=== PATIENT | female | born 1945 | race Caucasian/White ===

== ENCOUNTER 2024-02-15 21:55 | Emergency (ER) | payer MEDICARE, OTHER, MEDICAID ==
[2024-02-15 22:00] VITALS: BP 158/70
[2024-02-15 22:31] LABS: HEMATOCRIT 32.6 % (37.0-47.0); HEMOGLOBIN 10.5 g/dL (12.5-16.0); MEAN CELL VOLUME 88 fl (78-100); MEAN CORPUSCULAR HEMOGLOBIN 28 pg (27-31); MEAN CORPUSCULAR HGB CONC 32 g/dL (33-37); MEAN PLATELET VOLUME 8.4 fl (7.4-10.4); PLATELET COUNT 486 K/mm3 (130-400); RED BLOOD COUNT 3.71 M/mm3 (4.10-5.30); RED CELL DISTRIBUTION WIDTH 13.3 % (11.5-14.5); WHITE BLOOD COUNT 14.4 K/mm3 (4.8-10.8)
[2024-02-15 22:36] LABS: ALBUMIN 3.5 g/dL (3.4-4.8)
[2024-02-15 22:37] LABS: CALCIUM 9.8 mg/dL (8.3-10.5)
[2024-02-15 22:38] LABS: TOTAL PROTEIN 6.9 g/dL (6.2-8.1)
[2024-02-15 22:40] LABS: TOTAL BILIRUBIN 0.4 mg/dL (0.2-1.2)
[2024-02-15 23:10] LABS: LYMPHOCYTE 4 % (20-51); MONOCYTE 7 % (3-10); NEUTROPHILS 87 % (42-75)
[2024-02-15 23:15] LABS: URINE COLOR YELLOW (YELLOW)
[2024-02-15 23:16] LABS: PH-URINE 6.5 (5.0 - 8.0); URINE APPEARANCE CLOUDY (CLEAR); URINE BILIRUBIN NEGATIVE (NEGATIVE); URINE BLOOD 2+ (NEGATIVE); URINE GLUCOSE NEGATIVE (NEGATIVE); URINE KETONE NEGATIVE (NEGATIVE); URINE LEUKOCYTE ESTERASE 3+ (NEGATIVE); URINE NITRATE NEGATIVE (NEGATIVE); URINE PROTEIN(semi-quant) 3+ (NEGATIVE); URINE WBC >50 /hpf (0-3)
[2024-02-15] MEDS ORDERED: Iohexol 300 - 100 ML VIAL IV ONE (23:21)
[2024-02-15] MEDS ORDERED: cefTRIAXone 1 G in Water For Injection,Sterile 10 ML IV ONE (23:30)
[2024-02-15] MEDS ORDERED: CEPHALEXIN500 M1 PO (23:33)
[2024-02-16] MEDS ORDERED: LANTUS SOLOS100 U/ML SQ (02:37)
[2024-02-16] MEDS ORDERED: CITALOPRAM HBR10 MG PO (02:37)
[2024-02-16] MEDS ORDERED: BETAMETHASONE D1 CR2 TP (02:38)
[2024-02-16] MEDS ORDERED: FAMOTIDINE20 MG PO (02:40)
[2024-02-16] MEDS ORDERED: RYBELSUS7 MG PO (02:41)
[2024-02-16] MEDS ORDERED: ROSUVASTATIN CAL5 MG PO (02:41)
[2024-02-16] MEDS ORDERED: COLACE100 M1 PO (02:42)
[2024-02-16] MEDS ORDERED: VITAMIN B122500 MC1 PO (02:43)
[2024-02-16] MEDS ORDERED: VITAMIN E 180 MG PO (02:44)
[2024-02-16] MEDS ORDERED: VITAMIN D350 MC1 PO (02:44)
== END 2024-02-16 01:40 | disposition other institution (70) ==
LOC: ED 21:55
PROVIDERS: Family Medicine
DX: N12 Tubulo-interstitial nephritis, not specified as acute or chronic (principal); N39.0 Urinary tract infection, site not specified; E86.0 Dehydration
CPT/HCPCS: J0696; J7120; Q9967

== ENCOUNTER 2024-02-16 00:30 | Inpatient (IN) | payer MEDICARE, OTHER, MEDICAID ==
[~2024-02-16] VITALS: Ht 160 cm; Wt 79.9 kg
[2024-02-16] VITALS (7 sets, daily range): BP systolic 102–133; BP diastolic 67–80
[~2024-02-16 00:30] MED LIST: CEPHALEXIN500 M1 PO
[2024-02-16] MEDS ORDERED: Insulin Glargine-ygfn (Lantus) SQ SCH (00:44)
[2024-02-16] MEDS ORDERED: Polyethylene Glycol 3350 Powder 17 GM PACKET PO PRN (00:45)
[2024-02-16] MEDS ORDERED: Cefepime 1 G in Water For Injection,Sterile 10 ML IV SCH (00:45)
[2024-02-16] MEDS ORDERED: NS 1,000 ML IV SCH (00:45)
[2024-02-16] MEDS ORDERED: Acetaminophen 500 MG TAB PO PRN (00:45)
[2024-02-16] MEDS ORDERED: Dextrose (Glucose) 15 GM (4 x 3.75 GM) Chewable TAB PACK PO PRN (01:00)
[2024-02-16] MEDS ORDERED: Dextrose 50% Water 25 GM/50 ML SYRINGE IV PRN (01:00)
[2024-02-16] MEDS ORDERED: Glucagon 1 MG VIAL IM PRN (01:00)
[2024-02-16] MEDS ORDERED: LANTUS SOLOS100 U/ML SQ (02:37)
[2024-02-16] MEDS ORDERED: CITALOPRAM HBR10 MG PO (02:37)
[2024-02-16] MEDS ORDERED: BETAMETHASONE D1 CR2 TP (02:38)
[2024-02-16] MEDS ORDERED: FAMOTIDINE20 MG PO (02:40)
[2024-02-16] MEDS ORDERED: ROSUVASTATIN CAL5 MG PO (02:41)
[2024-02-16] MEDS ORDERED: RYBELSUS7 MG PO (02:41)
[2024-02-16] MEDS ORDERED: COLACE100 M1 PO (02:42)
[2024-02-16] MEDS ORDERED: VITAMIN B122500 MC1 PO (02:43)
[2024-02-16] MEDS ORDERED: VITAMIN D350 MC1 PO (02:44)
[2024-02-16] MEDS ORDERED: VITAMIN E 180 MG PO (02:44)
[2024-02-16] MEDS ORDERED: Insulin Lispro (HumaLOG) SQ SCH (08:00)
[2024-02-16] MEDS ORDERED: Citalopram 20 MG TAB PO SCH (09:00)
[2024-02-16] MEDS ORDERED: Famotidine 20 MG TAB PO SCH (09:00)
[2024-02-16] MEDS ORDERED: Cyanocobalamin (Vit B-12) 1,000 MCG TAB PO SCH (09:00)
[2024-02-16] MEDS ORDERED: Cholecalciferol (Vit D3) 25 MCG (1,000 Units) TAB PO SCH (09:00)
[2024-02-16 09:16] LABS: BASO # 0.02 K/mm3 (0.02-0.10); EOS # 0.35 K/mm3 (0.04-0.40); EOS % 2.6 % (1.0-5.0); HEMATOCRIT 33.7 % (37.0-47.0); HEMOGLOBIN 10.6 g/dL (12.5-16.0); LYMPH# 0.73 K/mm3 (1.50-4.00); MEAN CELL VOLUME 91 fl (78-100); MEAN CORPUSCULAR HEMOGLOBIN 29 pg (27-31); MEAN CORPUSCULAR HGB CONC 32 g/dL (33-37); MEAN PLATELET VOLUME 8.5 fl (7.4-10.4); MONO # 1.12 K/mm3 (0.20-0.80); NEU # 11.06 K/mm3 (1.40-6.50); PLATELET COUNT 455 K/mm3 (130-400); RED BLOOD COUNT 3.69 M/mm3 (4.10-5.30); RED CELL DISTRIBUTION WIDTH 13.5 % (11.5-14.5); WHITE BLOOD COUNT 13.3 K/mm3 (4.8-10.8)
[2024-02-16 09:25] LABS: ALBUMIN 3.3 g/dL (3.4-4.8); CALCIUM 9.4 mg/dL (8.3-10.5)
[2024-02-16 09:28] LABS: TOTAL PROTEIN 6.5 g/dL (6.2-8.1)
[2024-02-16 09:30] LABS: TOTAL BILIRUBIN 0.3 mg/dL (0.2-1.2)
[2024-02-17 03:18] VITALS: BP 114/65
[2024-02-17 07:17] VITALS: BP 115/72
[2024-02-17 07:55] LABS: HEMATOCRIT 29.7 % (37.0-47.0); HEMOGLOBIN 9.5 g/dL (12.5-16.0); MEAN CELL VOLUME 91 fl (78-100); MEAN CORPUSCULAR HEMOGLOBIN 29 pg (27-31); MEAN CORPUSCULAR HGB CONC 32 g/dL (33-37); MEAN PLATELET VOLUME 8.5 fl (7.4-10.4); PLATELET COUNT 418 K/mm3 (130-400); RED BLOOD COUNT 3.27 M/mm3 (4.10-5.30); RED CELL DISTRIBUTION WIDTH 13.6 % (11.5-14.5); WHITE BLOOD COUNT 9.8 K/mm3 (4.8-10.8)
[2024-02-17 08:05] LABS: CALCIUM 8.9 mg/dL (8.3-10.5)
[2024-02-17 08:06] LABS: TOTAL PROTEIN 5.9 g/dL (6.2-8.1)
[2024-02-17 08:08] LABS: TOTAL BILIRUBIN 0.2 mg/dL (0.2-1.2)
[2024-02-17 08:17] LABS: BAND 5 % (0-10); LYMPHOCYTE 5 % (20-51); MONOCYTE 10 % (3-10); NEUTROPHILS 73 % (42-75)
[2024-02-17 10:54] VITALS: BP 105/68
[2024-02-17 14:46] VITALS: BP 122/50
[2024-02-17 19:10] VITALS: BP 150/75
[2024-02-17 23:43] VITALS: BP 108/64
[2024-02-18 03:45] VITALS: BP 110/65
[2024-02-18 06:17] LABS: BASO # 0.01 K/mm3 (0.02-0.10); EOS # 0.52 K/mm3 (0.04-0.40); EOS % 6.1 % (1.0-5.0); HEMATOCRIT 30.3 % (37.0-47.0); HEMOGLOBIN 9.3 g/dL (12.5-16.0); LYMPH# 0.77 K/mm3 (1.50-4.00); MEAN CELL VOLUME 92 fl (78-100); MEAN CORPUSCULAR HEMOGLOBIN 28 pg (27-31); MEAN CORPUSCULAR HGB CONC 31 g/dL (33-37); MEAN PLATELET VOLUME 8.6 fl (7.4-10.4); PLATELET COUNT 419 K/mm3 (130-400); RED BLOOD COUNT 3.29 M/mm3 (4.10-5.30); RED CELL DISTRIBUTION WIDTH 13.6 % (11.5-14.5); WHITE BLOOD COUNT 8.5 K/mm3 (4.8-10.8)
[2024-02-18] MEDS ORDERED: Amoxicillin/Clavulanate K+ 875/125 MG TAB PO SCH (08:08)
[2024-02-18 12:49] VITALS: BP 122/77
[2024-02-18] MEDS ORDERED: AMOXICILLIN AND1 TA2 PO (12:53)
[2024-02-18 18:00] VITALS: BP 122/78
[2024-02-19 00:17] VITALS: BP 150/70
[2024-02-19 05:38] LABS: BASO # 0.03 K/mm3 (0.02-0.10); EOS # 0.41 K/mm3 (0.04-0.40); EOS % 4.2 % (1.0-5.0); HEMATOCRIT 30.3 % (37.0-47.0); HEMOGLOBIN 9.7 g/dL (12.5-16.0); LYMPH# 0.75 K/mm3 (1.50-4.00); MEAN CELL VOLUME 90 fl (78-100); MEAN CORPUSCULAR HEMOGLOBIN 29 pg (27-31); MEAN CORPUSCULAR HGB CONC 32 g/dL (33-37); MEAN PLATELET VOLUME 8.4 fl (7.4-10.4); MONO # 0.93 K/mm3 (0.20-0.80); NEU # 7.62 K/mm3 (1.40-6.50); PLATELET COUNT 427 K/mm3 (130-400); RED BLOOD COUNT 3.35 M/mm3 (4.10-5.30); RED CELL DISTRIBUTION WIDTH 13.6 % (11.5-14.5); WHITE BLOOD COUNT 9.8 K/mm3 (4.8-10.8)
[2024-02-19 05:52] LABS: CALCIUM 8.9 mg/dL (8.3-10.5)
[2024-02-19 06:18] VITALS: BP 153/75
== END 2024-02-19 09:15 | disposition home or self-care (01) | DRG 690 ==
LOC: MED/SURG 00:30
PROVIDERS: ADMIT Family Medicine
DX: N12 Tubulo-interstitial nephritis, not specified as acute or chronic (principal); E11.9 Type 2 diabetes mellitus without complications; K21.9 Gastro-esophageal reflux disease without esophagitis; D51.9 Vitamin B12 deficiency anemia, unspecified; D64.9 Anemia, unspecified; E55.9 Vitamin D deficiency, unspecified; F32.A Depression, unspecified; F41.9 Anxiety disorder, unspecified; Z66 Do not resuscitate; R32 Unspecified urinary incontinence; E78.5 Hyperlipidemia, unspecified; E86.0 Dehydration; Z79.4 Long term (current) use of insulin; Z96.0 Presence of urogenital implants; Z85.51 Personal history of malignant neoplasm of bladder
CPT/HCPCS: J0692; J1650; J1815; J7030

== ENCOUNTER 2024-03-04 21:17 | Emergency (ER) | payer MEDICARE, OTHER, MEDICAID ==
[~2024-03-04] VITALS: Ht 4 cm; Wt 79.9 kg
[~2024-03-04 21:17] MED LIST changes: +AMOXICILLIN AND1 TA2 PO; +BETAMETHASONE D1 CR2 TP; +CITALOPRAM HBR10 MG PO; +COLACE100 M1 PO; +FAMOTIDINE20 MG PO; +LANTUS SOLOS100 U/ML SQ; +ROSUVASTATIN CAL5 MG PO; +RYBELSUS7 MG PO; +VITAMIN B122500 MC1 PO; +VITAMIN D350 MC1 PO; +VITAMIN E 180 MG PO
[2024-03-04] MEDS ORDERED: GABAPENTIN100 MG PO (21:43)
[2024-03-04] MEDS ORDERED: TYLENOL EXTRA500 M2 PO (21:49)
[2024-03-04] MEDS ORDERED: ZOFRAN ODT4 MG PO (21:50)
[2024-03-04] MEDS ORDERED: CALCIUM CITRAT200 M2 PO (21:52)
[2024-03-04] MEDS ORDERED: CRANBERRY400 M3 PO (21:53)
[2024-03-04 21:59] LABS: BASO # 0.01 K/mm3 (0.02-0.10); EOS # 0.19 K/mm3 (0.04-0.40); EOS % 1.5 % (1.0-5.0); HEMATOCRIT 32.9 % (37.0-47.0); HEMOGLOBIN 10.4 g/dL (12.5-16.0); MEAN CELL VOLUME 88 fl (78-100); MEAN CORPUSCULAR HEMOGLOBIN 28 pg (27-31); MEAN CORPUSCULAR HGB CONC 32 g/dL (33-37); MEAN PLATELET VOLUME 8.3 fl (7.4-10.4); MONO # 1.33 K/mm3 (0.20-0.80); PLATELET COUNT 445 K/mm3 (130-400); RED BLOOD COUNT 3.75 M/mm3 (4.10-5.30); RED CELL DISTRIBUTION WIDTH 13.7 % (11.5-14.5); WHITE BLOOD COUNT 12.9 K/mm3 (4.8-10.8)
[2024-03-04 22:03] LABS: ALBUMIN 3.6 g/dL (3.4-4.8)
[2024-03-04 22:04] LABS: CALCIUM 10.2 mg/dL (8.3-10.5)
[2024-03-04 22:05] LABS: TOTAL PROTEIN 6.7 g/dL (6.2-8.1)
[2024-03-04 22:07] LABS: TOTAL BILIRUBIN 0.3 mg/dL (0.2-1.2)
[2024-03-04 22:36] LABS: URINE APPEARANCE CLOUDY (CLEAR); URINE COLOR YELLOW (YELLOW)
[2024-03-04 22:37] LABS: URINE BILIRUBIN NEGATIVE (NEGATIVE); URINE BLOOD 2+ (NEGATIVE); URINE GLUCOSE NEGATIVE (NEGATIVE); URINE KETONE NEGATIVE (NEGATIVE); URINE LEUKOCYTE ESTERASE 3+ (NEGATIVE); URINE NITRATE NEGATIVE (NEGATIVE); URINE PROTEIN(semi-quant) 2+ (NEGATIVE); URINE WBC >50 /hpf (0-3)
[2024-03-04] MEDS ORDERED: CEFDINIR300 MG PO (22:44)
[2024-03-04] MEDS ORDERED: Acetaminophen 325 MG TAB PO ONE (23:11)
[2024-03-04 23:57] VITALS: BP 129/71
== END 2024-03-04 23:57 | disposition home or self-care (01) ==
LOC: ED 21:17
PROVIDERS: Physician Assistant
DX: N39.0 Urinary tract infection, site not specified (principal); Z85.42 Personal history of malignant neoplasm of other parts of uterus
CPT/HCPCS: J0696

== ENCOUNTER 2024-03-13 17:20 | Observation (INO) | payer MEDICARE, OTHER, MEDICAID ==
[~2024-03-13] VITALS: Ht 162.6 cm; Wt 77.6 kg
[~2024-03-13 17:20] MED LIST changes: +CALCIUM CITRAT200 M2 PO; +CEFDINIR300 MG PO; +CRANBERRY400 M3 PO; +GABAPENTIN100 MG PO; +TYLENOL EXTRA500 M2 PO; +ZOFRAN ODT4 MG PO
[2024-03-13] MEDS ORDERED: NS 500 ML IV SCH (17:45)
[2024-03-13] MEDS ORDERED: Ondansetron 4 MG/2 ML VIAL IV ONE (17:45)
[2024-03-13 18:03] LABS: HEMATOCRIT 35.9 % (37.0-47.0); HEMOGLOBIN 11.1 g/dL (12.5-16.0); MEAN CELL VOLUME 92 fl (78-100); MEAN CORPUSCULAR HEMOGLOBIN 29 pg (27-31); MEAN CORPUSCULAR HGB CONC 31 g/dL (33-37); MEAN PLATELET VOLUME 8.7 fl (7.4-10.4); PLATELET COUNT 443 K/mm3 (130-400); RED CELL DISTRIBUTION WIDTH 13.8 % (11.5-14.5); WHITE BLOOD COUNT 19.1 K/mm3 (4.8-10.8)
[2024-03-13 18:11] LABS: ALBUMIN 3.9 g/dL (3.4-4.8); SODIUM 140 mmol/L (136-145)
[2024-03-13 18:12] LABS: CALCIUM 10.5 mg/dL (8.3-10.5)
[2024-03-13 18:13] LABS: GLUCOSE 229 mg/dL (65-105)
[2024-03-13 18:14] LABS: CARBON DIOXIDE 23 mmol/L (23-31)
[2024-03-13 18:15] LABS: TOTAL BILIRUBIN 0.4 mg/dL (0.2-1.2)
[2024-03-13 18:18] LABS: AST-SGOT 23 U/L (5-34)
[2024-03-13 18:20] LABS: ALT/SGPT 21 U/L (0-55); LIPASE 6 U/L (8-78)
[2024-03-13 18:29] LABS: BAND 3 % (0-10); LYMPHOCYTE 4 % (20-51); MONOCYTE 5 % (3-10); NEUTROPHILS 86 % (42-75)
[2024-03-13 18:30] LABS: TROPONIN-I < 0.030 ng/mL (0.00-0.033)
[2024-03-13] MEDS ORDERED: Iodixanol-320 100 ML BOTTLE IV ONE (19:34)
[2024-03-13] MEDS ORDERED: cefTRIAXone 1 G in Water For Injection,Sterile 10 ML IV ONE (19:45)
[2024-03-13] MEDS ORDERED: NS 1,000 ML IV SCH (19:45)
[2024-03-13 20:00] LABS: URINE APPEARANCE CLOUDY (CLEAR); URINE BILIRUBIN NEGATIVE (NEGATIVE); URINE BLOOD 2+ (NEGATIVE); URINE COLOR YELLOW (YELLOW); URINE GLUCOSE NEGATIVE (NEGATIVE); URINE KETONE NEGATIVE (NEGATIVE); URINE NITRATE NEGATIVE (NEGATIVE); URINE PROTEIN(semi-quant) 2+ (NEGATIVE)
[2024-03-13 20:01] LABS: URINE LEUKOCYTE ESTERASE 3+ (NEGATIVE); URINE WBC >50 /hpf (0-3)
[2024-03-13 22:52] VITALS: BP 136/68
[2024-03-13] MEDS ORDERED: Cefepime 1 G in Water For Injection,Sterile 10 ML IV SCH (23:30)
[2024-03-13] MEDS ORDERED: Naloxone 0.4 MG/ML VIAL IV PRN (23:30)
[2024-03-13] MEDS ORDERED: Acetaminophen 325 MG TAB PO PRN (23:30)
[2024-03-14 03:02] VITALS: BP 132/70
[2024-03-14 07:06] LABS: BASO # 0.03 K/mm3 (0.02-0.10); EOS # 0.11 K/mm3 (0.04-0.40); EOS % 0.8 % (1.0-5.0); HEMATOCRIT 27.6 % (37.0-47.0); LYMPH# 0.77 K/mm3 (1.50-4.00); MEAN CELL VOLUME 89 fl (78-100); MEAN CORPUSCULAR HEMOGLOBIN 28 pg (27-31); MEAN CORPUSCULAR HGB CONC 32 g/dL (33-37); MEAN PLATELET VOLUME 8.4 fl (7.4-10.4); MONO # 1.47 K/mm3 (0.20-0.80); NEU # 11.35 K/mm3 (1.40-6.50); PLATELET COUNT 391 K/mm3 (130-400); RED CELL DISTRIBUTION WIDTH 14.1 % (11.5-14.5); WHITE BLOOD COUNT 13.8 K/mm3 (4.8-10.8)
[2024-03-14 07:12] LABS: HEMOGLOBIN 8.7 g/dL (12.5-16.0)
[2024-03-14 07:19] LABS: TOTAL PROTEIN 5.8 g/dL (6.2-8.1)
[2024-03-14 07:21] LABS: TOTAL BILIRUBIN 0.3 mg/dL (0.2-1.2)
[2024-03-14 07:35] VITALS: BP 115/67
--- NOTE | 2024-03-14 08:45 | NUR ---
PT. DENIES ANY NEEDS OR CONCERNS. STATES THAT SHE IS TIRED TODAY AND STILL HAS SOME BURNING WITH URINATION. STEADY GAIT.
[2024-03-14] MEDS ORDERED: Citalopram 20 MG TAB PO SCH (09:00)
[2024-03-14] MEDS ORDERED: Docusate Sodium 100 MG CAP PO SCH (09:00)
[2024-03-14 11:11] VITALS: BP 117/69
== END 2024-03-14 12:08 | disposition other institution (70) ==
LOC: ED 17:20 → MED/SURG 21:48
PROVIDERS: ADMIT Nurse Practitioner Family
DX: N12 Tubulo-interstitial nephritis, not specified as acute or chronic (principal); N39.0 Urinary tract infection, site not specified; B96.89 Other specified bacterial agents as the cause of diseases classified elsewhere; E87.20 Acidosis, unspecified; R53.83 Other fatigue; E11.9 Type 2 diabetes mellitus without complications; Z79.84 Long term (current) use of oral hypoglycemic drugs; Z79.4 Long term (current) use of insulin; Z85.51 Personal history of malignant neoplasm of bladder; Z85.42 Personal history of malignant neoplasm of other parts of uterus
CPT/HCPCS: G0378; J0692; J0696; J1650; J2405; J7030; J7040; Q9967

== ENCOUNTER 2024-03-14 12:09 | Inpatient (IN) | payer MEDICARE, OTHER, MEDICAID ==
[~2024-03-14] VITALS: Ht 162.6 cm; Wt 77.6 kg
[2024-03-14] MEDS ORDERED: Polyethylene Glycol 3350 Powder 17 GM PACKET PO PRN (13:00)
[2024-03-14] MEDS ORDERED: Acetaminophen 325 MG TAB PO PRN (13:00)
[2024-03-14] MEDS ORDERED: Ondansetron 4 MG/2 ML VIAL IV PRN (13:00)
[2024-03-14] MEDS ORDERED: Docusate Sodium 100 MG CAP PO PRN (13:15)
[2024-03-14] MEDS ORDERED: Docusate Sodium 100 MG CAP PO SCH (13:15)
[2024-03-14] MEDS ORDERED: Cefepime 1 G in Water For Injection,Sterile 10 ML IV SCH ×2 (13:15→17:30)
[2024-03-14] MEDS ORDERED: Famotidine 20 MG TAB PO PRN (13:15)
[2024-03-14] MEDS ORDERED: Dextrose 50% Water 25 GM/50 ML SYRINGE IV PRN (13:30)
[2024-03-14] MEDS ORDERED: Dextrose (Glucose) 15 GM (4 x 3.75 GM) Chewable TAB PACK PO PRN (13:30)
[2024-03-14] MEDS ORDERED: Glucagon 1 MG VIAL IM PRN (13:30)
[2024-03-14] MEDS ORDERED: NS 1,000 ML IV SCH (13:45)
[2024-03-14 15:00] VITALS: BP 101/65
[2024-03-14] MEDS ORDERED: Insulin Lispro (HumaLOG) SQ SCH (17:00)
--- NOTE | 2024-03-14 19:10 | NUR ---
Report received from Erinn DENIS. Patient resting supine in bed. IVF infusing NS at 75 ML/HR. Site patent to RFA. A/O x4. Denies pain, states some SOA with long exertion. Lungs CTA. Denies cough or nausea. Assessment completed. Reviewed medications, POC. Denies questions, wants or needs. Bed alarm on. Call light in reach.
[2024-03-14 20:49] VITALS: BP 116/69
[2024-03-14] MEDS ORDERED: Famotidine 20 MG TAB PO SCH (21:00)
[2024-03-14] MEDS ORDERED: Gabapentin 100 MG CAP PO SCH (21:00)
--- NOTE | 2024-03-15 03:01 | NUR ---
Resting quietly. No signs of pain/distress. IVF continue to infuse NS at 75 ML/HR. Site patent.
[2024-03-15 03:49] VITALS: BP 115/66
--- NOTE | 2024-03-15 05:20 | NUR ---
IV antibiotic given SIVP. Up to BR with 1 assist and cane. Gait steady. Voids 200 ML of yellow cloudy urine. Assisted back to bed.
--- NOTE | 2024-03-15 06:52 | NUR ---
Report to Enrique DENIS.
[2024-03-15 07:15] VITALS: BP 112/69
[2024-03-15 08:00] LABS: HEMATOCRIT 27.5 % (37.0-47.0); HEMOGLOBIN 8.6 g/dL (12.5-16.0); MEAN CELL VOLUME 89 fl (78-100); MEAN CORPUSCULAR HEMOGLOBIN 28 pg (27-31); MEAN CORPUSCULAR HGB CONC 31 g/dL (33-37); MEAN PLATELET VOLUME 8.6 fl (7.4-10.4); PLATELET COUNT 369 K/mm3 (130-400); WHITE BLOOD COUNT 9.6 K/mm3 (4.8-10.8)
[2024-03-15 08:03] LABS: ALBUMIN 2.8 g/dL (3.4-4.8)
[2024-03-15 08:04] LABS: CALCIUM 8.7 mg/dL (8.3-10.5)
[2024-03-15 08:05] LABS: TOTAL PROTEIN 5.6 g/dL (6.2-8.1)
[2024-03-15 08:07] LABS: TOTAL BILIRUBIN 0.3 mg/dL (0.2-1.2)
[2024-03-15 08:28] LABS: BAND 10 % (0-10); LYMPHOCYTE 4 % (20-51); MONOCYTE 9 % (3-10); NEUTROPHILS 72 % (42-75)
[2024-03-15] MEDS ORDERED: Cyanocobalamin (Vit B-12) 1,000 MCG TAB PO SCH (09:00)
[2024-03-15] MEDS ORDERED: [UNRECOGNIZED DRUG - OTHER] PO SCH (09:00)
[2024-03-15] MEDS ORDERED: Citalopram 20 MG TAB PO SCH (09:00)
[2024-03-15] MEDS ORDERED: Cholecalciferol (Vit D3) 25 MCG (1,000 Units) TAB PO SCH (09:00)
[2024-03-15 11:12] VITALS: BP 106/67
--- NOTE | 2024-03-15 13:01 | NUR ---
Received consult will visit pt and assess in 2 days. noted remotely.
[2024-03-15 15:05] VITALS: BP 119/71
[2024-03-15 19:00] VITALS: BP 124/73
--- NOTE | 2024-03-15 19:05 | NUR ---
Report received from Enrique DENIS. Patient ambulated to and from with RN. Voids clear yellow urine. IVF continue infusing NS at 75 ML/HR. Site patent to L hand. A/O x4. Denies pain, SOA, N/V. Assessment completed. Denies questions, wants or needs. Bed alarm on. Call light in reach.
[2024-03-15 23:09] VITALS: BP 153/76
--- NOTE | 2024-03-15 23:29 | NUR ---
Requests and given Tylenol for sleep aid. Denies pain. Up to BR with SBA to void. IVF continue at 75 ML/HR. Site patent to Reyes willett.
[2024-03-16 03:00] VITALS: BP 146/73
--- NOTE | 2024-03-16 06:11 | NUR ---
Up several times in the shift to urinate. 1:1 assist with walker. Denies pain this AM. Continues on IV ABT and IVF at 75 ML/HR.
--- NOTE | 2024-03-16 06:57 | NUR ---
Report to Enrique DENIS
[2024-03-16 07:00] VITALS: BP 109/69
[2024-03-16 10:27] VITALS: BP 132/82
[2024-03-16 14:53] VITALS: BP 127/80
[2024-03-16 19:00] VITALS: BP 109/71
--- NOTE | 2024-03-16 19:54 | NUR ---
Report received from Enrique DENIS. 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 A/O x4. Denies pain, SOA, cough. Denies dysuria. INT patent and intact to R dorsal hand. Up with 1:1 assist and cane to BR PRN. Assessment completed. Denies wants or needs. Chair alrm on. Call light in reach.
[2024-03-16 22:31] VITALS: BP 148/74
[2024-03-17 02:50] VITALS: BP 127/72
--- NOTE | 2024-03-17 05:32 | NUR ---
Up to BR PRN with 1:1 assist and cane. Scheduled IV ABT given. INT patent to R hand. Sleeping through administration. No signs of pain/distress. Bed alarm on. Call light in reach.
--- NOTE | 2024-03-17 06:48 | NUR ---
Report to Erinn DENIS.
[2024-03-17 07:29] VITALS: BP 130/71
[2024-03-17 07:36] LABS: HEMATOCRIT 30.6 % (37.0-47.0); HEMOGLOBIN 9.6 g/dL (12.5-16.0); MEAN CELL VOLUME 88 fl (78-100); MEAN CORPUSCULAR HEMOGLOBIN 28 pg (27-31); MEAN CORPUSCULAR HGB CONC 31 g/dL (33-37); MEAN PLATELET VOLUME 8.6 fl (7.4-10.4); PLATELET COUNT 416 K/mm3 (130-400); RED BLOOD COUNT 3.46 M/mm3 (4.10-5.30); RED CELL DISTRIBUTION WIDTH 13.9 % (11.5-14.5)
[2024-03-17 07:50] LABS: ALBUMIN 3.4 g/dL (3.4-4.8)
[2024-03-17 07:51] LABS: CALCIUM 9.4 mg/dL (8.3-10.5)
[2024-03-17 07:52] LABS: TOTAL PROTEIN 6.5 g/dL (6.2-8.1)
[2024-03-17 07:54] LABS: TOTAL BILIRUBIN 0.2 mg/dL (0.2-1.2)
[2024-03-17 08:05] LABS: LYMPHOCYTE 6 % (20-51); MONOCYTE 7 % (3-10); NEUTROPHILS 79 % (42-75)
--- NOTE | 2024-03-17 08:42 | NUR ---
PT. UP IN CHAIR EATING BREAKFAST. DENIES ANY NEEDS OR CONCERNS. ATE WELL FOR BREAKFAST.
[2024-03-17] MEDS ORDERED: Insulin Glargine-ygfn (Lantus) SQ SCH (09:00)
[2024-03-17 11:27] VITALS: BP 109/71
== END 2024-03-17 11:42 | disposition swing bed (61) | DRG 690 ==
LOC: MED/SURG 12:09
PROVIDERS: ADMIT Family Medicine
DX: N12 Tubulo-interstitial nephritis, not specified as acute or chronic (principal); R65.10 Systemic inflammatory response syndrome (SIRS) of non-infectious origin without acute organ dysfunction; E11.9 Type 2 diabetes mellitus without complications; D51.9 Vitamin B12 deficiency anemia, unspecified; E55.9 Vitamin D deficiency, unspecified; K21.9 Gastro-esophageal reflux disease without esophagitis; R32 Unspecified urinary incontinence; F32.A Depression, unspecified; Z66 Do not resuscitate; F41.9 Anxiety disorder, unspecified; E78.5 Hyperlipidemia, unspecified; E86.0 Dehydration; Z79.4 Long term (current) use of insulin; Z87.440 Personal history of urinary (tract) infections
CPT/HCPCS: J0692; J1650; J1815; J7030

== ENCOUNTER 2024-03-17 11:43 | Inpatient (IN) | payer MEDICARE, OTHER, MEDICAID ==
[~2024-03-17] VITALS: Ht 162.6 cm; Wt 78.3 kg
[2024-03-17] MEDS ORDERED: Polyethylene Glycol 3350 Powder 17 GM PACKET PO PRN (12:00)
[2024-03-17] MEDS ORDERED: Dextrose (Glucose) 15 GM (4 x 3.75 GM) Chewable TAB PACK PO PRN (12:00)
[2024-03-17] MEDS ORDERED: Dextrose 50% Water 25 GM/50 ML SYRINGE IV PRN (12:00)
[2024-03-17] MEDS ORDERED: Insulin Lispro (HumaLOG) SQ SCH (12:00)
[2024-03-17] MEDS ORDERED: Glucagon 1 MG VIAL IM PRN (12:00)
[2024-03-17] MEDS ORDERED: Acetaminophen 500 MG TAB PO PRN (12:00)
[2024-03-17] MEDS ORDERED: Fluticasone Nasal 50 MCG/Spray 16 GM BOTTLE NS SCH (12:16)
[2024-03-17] MEDS ORDERED: Cefepime 1 G in Water For Injection,Sterile 10 ML IV SCH (18:00)
[2024-03-17 18:24] VITALS: BP 123/61
--- NOTE | 2024-03-17 18:24 | NUR ---
PT. REPORTS THAT SHE IS NOT FEELING WELL TODAY. STATES SHE IS MORE TIRED AND HAS A RUNNY NOSE. CHANGED TO SWB STATUS TODAY.
--- NOTE | 2024-03-17 19:00 | NUR ---
Report received from Erinn DENIS. Patient observed by this nurse walking back from on own. No device. Education provided on fall prevention and bed alarm set at this time. A/O x4. Denies pain. States she just "hasn't felt good today" "I feel like I am getting a cold". Continues on IV Cefepime for pyleonephritis. INT intact to L wrist. Voiding yellow cloudy urine. Assessment completed. Bed alarm on. Call light in reach.
[2024-03-17] MEDS ORDERED: Insulin Glargine-ygfn (Lantus) SQ SCH (21:00)
[2024-03-17] MEDS ORDERED: Gabapentin 100 MG CAP PO SCH (21:00)
[2024-03-17] MEDS ORDERED: Famotidine 20 MG TAB PO SCH (21:00)
--- NOTE | 2024-03-18 05:52 | NUR ---
AM IV antibiotic given SIVP. INT patent to LFA. Up to BR with SBA and cane. Voids 200 ML of pale yellow cloudy urine. Back to bed. Sleepy. Denies wants or needs at this time.
--- NOTE | 2024-03-18 06:57 | NUR ---
Report to Enrique DENIS.
[2024-03-18 07:38] VITALS: BP 134/82
[2024-03-18] MEDS ORDERED: BETAMETHASONE TP SCH (09:00)
[2024-03-18] MEDS ORDERED: CLOTRIMAZOLE TP SCH (09:00)
[2024-03-18] MEDS ORDERED: Cholecalciferol (Vit D3) 25 MCG (1,000 Units) TAB PO SCH (09:00)
[2024-03-18] MEDS ORDERED: Citalopram 20 MG TAB PO SCH (09:00)
[2024-03-18] MEDS ORDERED: Docusate Sodium 100 MG CAP PO SCH (09:00)
[2024-03-18] MEDS ORDERED: Cyanocobalamin (Vit B-12) 1,000 MCG TAB PO SCH (09:00)
[2024-03-18] MEDS ORDERED: [UNRECOGNIZED DRUG - OTHER] PO SCH (09:00)
--- NOTE | 2024-03-18 15:41 | NUR ---
PTS DAUGHTER ARRIVED AT APROX 1430. PT BEGAN TO GET CHILLED. PTS DAUGHTER CAME TO THE DESK REQUESTING A WARM BLANKET. STAFF PROVIDED A WARM BLANKET. THIS NURSE WENT TO SPEAK WITH PT AND DAUGHTER. PTS DAUGHTER HAD QUESTIONS ABOUT HOW SWING BED WORKS AND ASKED ABOUT APPOINTMENTS FOR HER MOTHERS EYE INJECTIONS. WE WERE CONVERSING, PT BEGAN TO SHIVER AND SHAKE VIOLENTLY. THIS NURSE AND STAFF OBTAINED VITALS. VITALS WERE UNREMARKABLE.
[2024-03-18 19:00] VITALS: BP 136/74
--- NOTE | 2024-03-18 20:00 | NUR ---
Patient resting in bed and moans off and on. Appears exhausted and has had poor sleep in the last several days. Hand mash preparatory operator equal. HS meds given. Patient doesn't answer questions readily and takes encouragement. VSS. Accu check 219.
--- NOTE | 2024-03-19 05:46 | NUR ---
PATIENT AWAKENED FOR LAB DRAW AND IV ABT. DENIES PAIN OR NEEDS. DROWSY AND CLOSES EYES. NURSE INQUIRED HOW SHE WAS FEELING AND STATED "I'M FINE, WHY?" SHAKES HEAD YES TO SLEEPING BETTER THIS NOC. 1 ASSIST TO THE BATHROOM WITH CANE AND DOES GRAB DOOR ENTRANCE AND OTHER OBJECTS. INCONTINENT OF URINE AND VOIDS IN TOILET. STAFF AWAKENED PATIENT 3 TIMES DURING THE NIGHT TO VOID. NORMALLY UP Q 1-2 HOURS DURING NOC TO VOID.
[2024-03-19 05:57] LABS: HEMATOCRIT 28.1 % (37.0-47.0); HEMOGLOBIN 8.8 g/dL (12.5-16.0); MEAN CELL VOLUME 90 fl (78-100); MEAN CORPUSCULAR HEMOGLOBIN 28 pg (27-31); MEAN CORPUSCULAR HGB CONC 31 g/dL (33-37); MEAN PLATELET VOLUME 8.7 fl (7.4-10.4); PLATELET COUNT 394 K/mm3 (130-400); RED BLOOD COUNT 3.14 M/mm3 (4.10-5.30); RED CELL DISTRIBUTION WIDTH 14.5 % (11.5-14.5); WHITE BLOOD COUNT 15.4 K/mm3 (4.8-10.8)
[2024-03-19 06:14] LABS: ALBUMIN 3.1 g/dL (3.4-4.8)
[2024-03-19 06:15] LABS: CALCIUM 9.1 mg/dL (8.3-10.5)
[2024-03-19 06:18] LABS: TOTAL BILIRUBIN 0.3 mg/dL (0.2-1.2)
[2024-03-19 07:03] LABS: LYMPHOCYTE 3 % (20-51); MONOCYTE 7 % (3-10); NEUTROPHILS 90 % (42-75)
[2024-03-19 07:41] VITALS: BP 125/72
[2024-03-19 07:54] VITALS: BP 103/63
--- NOTE | 2024-03-19 09:12 | NUR ---
PT IS NOT AT HER BASELINE. WHEN PT IS FEELING WELL, SHE IS CONVERSATIONAL, SHE CAN NORMALLY PAINT WITH CRYSTALS WHICH TAKES FOCUS AND DEXTERITY. TODAY PT HAD AN EPISODE OF BLADDER INCONTINENCE. PT HAS PERIODS OF CONDUSION. DURING MORNING ROUTINE PT HAD AN EPISODE OF REPEATING THE LAST WORD SHE SAID IN A SENTENCE. I.E. " I LIKED THE GRAPE JUICE, IT WAS TASTY,TASTY,TASTY, TASTY." PTS VS HAVE BEEN UNREMARKABLE. BLOOD GLUCOSE RESULTS ON THE LOW END OF SLIDING SCALE. VITAL SIGNS ARE TO BE CHECKED Q4 AND A CHEST XRAY HAS BEEN ORDERED.
[2024-03-19 11:21] VITALS: BP 119/76
--- NOTE | 2024-03-19 12:00 | NUR ---
REPORT RECEIVED FROM CIRA LLANES. PATIENT SITTING IN CHAIR WITH LUNCH. DENIES NEEDS OR COMPLAINTS AT THIS TIME. CHAIR ALARM ON, CALL LIGHT WITHIN REACH.
--- NOTE | 2024-03-19 12:30 | NUR ---
PATIENT REQUESTS TO LAY IN BED STATES "I AM TIRED". PATIENT ASSISTED TO BED WITH CANE AND STANDBY ASSIST. PATIENT DENIES OTHER NEEDS OR COMPLAINTS AT THIS TIME. BED ALARM ON, CALL LIGHT WITHIN REACH.
--- NOTE | 2024-03-19 14:30 | NUR ---
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 PT ATTEMPTED TO WORK WITH PATIENT, PATIENT REFUSED AT THIS TIME.
[2024-03-19 16:10] VITALS: BP 117/77
--- NOTE | 2024-03-19 18:54 | NUR ---
REPORT GIVEN TO CIRA MINOR
[2024-03-19 19:30] VITALS: BP 152/73
--- NOTE | 2024-03-19 20:30 | NUR ---
Patient resting in bed with eyes closed. Awakened for HS meds. Nurse repeats questions several times and patient doesn't answer to month or year does state place. Alert when taking meds and follows simple commands. HS meds all reviewed and given. Patient returns to resting with eyes closed.
[2024-03-19 23:45] VITALS: BP 136/71
[2024-03-20 03:51] VITALS: BP 126/70
--- NOTE | 2024-03-20 06:00 | NUR ---
Awakened for IV ABT. Has been resting well in between toileting during the night.
[2024-03-20 06:59] LABS: BASO # 0.02 K/mm3 (0.02-0.10); EOS % 4.1 % (1.0-5.0); HEMATOCRIT 27.3 % (37.0-47.0); HEMOGLOBIN 8.5 g/dL (12.5-16.0); LYMPH# 0.74 K/mm3 (1.50-4.00); MEAN CELL VOLUME 90 fl (78-100); MEAN CORPUSCULAR HEMOGLOBIN 28 pg (27-31); MEAN CORPUSCULAR HGB CONC 31 g/dL (33-37); MEAN PLATELET VOLUME 8.8 fl (7.4-10.4); MONO # 1.26 K/mm3 (0.20-0.80); NEU # 7.25 K/mm3 (1.40-6.50); PLATELET COUNT 382 K/mm3 (130-400); RED BLOOD COUNT 3.03 M/mm3 (4.10-5.30); RED CELL DISTRIBUTION WIDTH 14.7 % (11.5-14.5); WHITE BLOOD COUNT 9.7 K/mm3 (4.8-10.8)
[2024-03-20 07:07] LABS: ALBUMIN 3.1 g/dL (3.4-4.8)
[2024-03-20 07:09] LABS: TOTAL PROTEIN 6.1 g/dL (6.2-8.1)
[2024-03-20 07:11] LABS: TOTAL BILIRUBIN 0.3 mg/dL (0.2-1.2)
--- NOTE | 2024-03-20 07:13 | NUR ---
THIS NURSE ASSESSED PT. WHEN ASCULTATING LUNGS, UPPER LOBES CLEAR. LOWER LOBES CAN BE HEARD UPON INSPIRATION. PT IS SLEEPY YET ORIETNED X4. PTS POC BG CHECKED 139. PT DENIES ANY NEEDS AT THIS TIME.
[2024-03-20 07:26] VITALS: BP 124/70
--- NOTE | 2024-03-20 09:05 | NUR ---
THIS NURSE ADMINISTERED PTS MEDICATIONS. PCT CHASTITY SPOKE WITH PT ABOUT USING HER INCENTIVE SPIROMETER. PT RESPONDED IF SHE DIDN'T KNOW WHAT THE ITEM WAS. THIS NURSE EDUCATED PT A SECOND TIME ABOUT THE INCENTIVE SPIROMETER, THIS NURSE CONVEYED THE IMPORTANCE OF USING HER INCENTIVE SPIROMETER EVERY HOUR WHILE AWAKE TO PREVENT FURTHER ATELECTASIS OR EVEN COMPLICATIONS SUCH PNUEMONIA. PT VERBALIZED UNDERSTANDING. WHILE THIS NURSE WAS HELPING PT FINISH TAKING HER PILLS AND TREAMENTS, PT STOPPED, LAID HER HEAD ON HER TABLE AND ASKED "WHY AM I LIKE THIS?" SHE BECAME TEARFUL. THIS NURSE ASKED IF SHE WAS REFFERING TO EMOITIONALLY OR PHYSICALLY. PT STATED "BOTH." PT DIDN'T WANT TO ELABORATE FURTHER, SHE TOOK HER MEDICATIONS WITH SOME FURTHER ENCOURAGEMENT. PT STILL SEEMED UPSET, THIS NURSE DID NOT PUSH PT TO USE INSENTIVE SPIROMETER AT THIS TIME.
--- NOTE | 2024-03-20 09:33 | NUR ---
PTS IV WRAPPED WITH CAMRYN BANDAGE, NO S\S OF INFILTRATION. FLUSHES WELL.
--- NOTE | 2024-03-20 10:08 | NUR ---
PCT SIOMARA REPORTED TO THIS RN PT FEELS NAUSEOUS. EMESIS BAG GIVEN. THIS NURSE OFFERED ZOFRAN. PT STATED "I WON'T NEED ANY, I'M NOT SICK ANY MORE." EMESIS IS UNMEASURABLE, MIXED WITH WATER AND [place]. PT NEEDS REMINDERS AND COACHING WHEN USING IS.
[2024-03-20 11:16] VITALS: BP 113/73
--- NOTE | 2024-03-20 11:38 | NUR ---
PT REPORTS THE RIGHT SIDE OF HER HEAD IS STILL HURTING. SHE PREFERS TO LIE DOWN. THIS NURSE OFFERED TO RECLINE HER CHAIR, THIS WAY SHE CAN GET UP FOR LUNCH. PT AGREED, THIS NURSE PROVIDED A BLANKET AND NOTIFIED PROVIDER.
[2024-03-20] MEDS ORDERED: Ibuprofen 200 MG TAB PO PRN (11:45)
--- NOTE | 2024-03-20 12:29 | NUR ---
PT REQUESTED TO LIE DOWN IN BED. THIS RN ASSISTED PT TO BED. BED ALARM IS ON.
--- NOTE | 2024-03-20 13:05 | NUR ---
PT REQUESTED TO USE THE RESTROOM. PT HAD A BM AND VOIDED 200. PT RETURNED TO BED. PT AMBULATED USING A CANE, STANDBY ASSIST.
[2024-03-20 15:00] VITALS: BP 122/86
--- NOTE | 2024-03-20 17:21 | NUR ---
PT IS EATING. PT IS DRINKING A DIET COKE WITH SUPPER AND TOOK MOTRIN AND TYLENOL FOR A HEADACHE. PT DENIES ANY NEEDS AT THIS TIME.
[2024-03-20 19:10] VITALS: BP 123/76
[2024-03-20] MEDS ORDERED: diphenhydrAMINE 25 MG CAP PO ONE (20:00)
[2024-03-20] MEDS ORDERED: Ketorolac 30 MG/ML VIAL IV ONE (20:00)
[2024-03-20 22:45] VITALS: BP 139/65
--- NOTE | 2024-03-21 00:04 | NUR ---
PT A&OX4. LUNGS CLEAR. ABD SOFT AND NON TENDER. SKIN PINK, WARM AND DRY. NO RED OR OPEN AREAS NOTED. PT AMBULATES WITH WALKER, GAIT BELT AND X1 ASSIST. PT COMPLAINS OF HEADACHE SINCE THIS MORNING. PT HAS HAD X2 DOSES OF PRN TYLENOL AND MOTRIN. PT ASKS THIS NURSE FOR MORE MEDICATION FOR HEADACHE RATED AT 8/10. THIS NURSE NOTIFIES DR STAPLES OF PT HEADACHE AND RECEIVED ORDERS FOR IV TORDOL AND PO BENADRYL. MEDICATION GIVEN TO PT ORDERED. PT NOW RESTING QUIETLY.
[2024-03-21 03:05] VITALS: BP 137/71
--- NOTE | 2024-03-21 07:00 | NUR ---
REPORT RECEIVED FROM CIRA NINO
[2024-03-21 07:10] VITALS: BP 168/84
--- NOTE | 2024-03-21 07:15 | NUR ---
PATIENT RESTING IN BED WITH EYES CLOSED. BED ALARM ON, CALL LIGHT WITHIN REACH
--- NOTE | 2024-03-21 07:55 | NUR ---
PATIENT RESTING IN BED WITH EYES CLOSED, AROUSABLE TO VOICE. PATIENT READY TO GET UP FOR THE DAY, ASSISTED TO CHAIR WITH CANE AND STANDBY ASSIST. PATIENT STATES "FEELING MUCH BETTER" THIS MORNING. C/O CRAMPING LIKE PAIN TO RLE INTERMITTENLY. ASSESSMENT COMPLETE. PATIENT DENIES OTHER NEEDS OR COMPLAINTS AT THIS TIME. CHAIR ALARM ON, CALL LIGHT WITHIN REACH.
--- NOTE | 2024-03-21 08:15 | NUR ---
PATIENT UNHAPPY WITH BREAKFAST. THIS NURSE OFFERED TO PROVIDE THE PATIENT WITH SOMETHING ELSE. PATIENT DECLINED STATING "I WILL JUST TRY AND EAT MY FRUIT"
--- NOTE | 2024-03-21 10:10 | NUR ---
CHAIN PERSON INFORMED THIS NURSE PATIENT ASKING FOR SNACK. CHAIN PERSON PROVIDED PATIENT IN PUDDING AND WAFERS AT THIS TIME.
[2024-03-21 11:00] VITALS: BP 111/68
[2024-03-21 15:00] VITALS: BP 128/69
--- NOTE | 2024-03-21 18:56 | NUR ---
REPORT GIVEN TO CIRA EMERY
[2024-03-21 19:00] VITALS: BP 161/87
--- NOTE | 2024-03-21 19:03 | NUR ---
Report received form Nader DENIS
--- NOTE | 2024-03-21 20:18 | NUR ---
Pt sitting in the recliner with her feet up on the heating vent. Pt reports she has cold feet and is trying to warm them. Denies pain when asked.Pt states she is ready for bed, she is assisted to the the bathroom to ready for bed. Pt ambulates to the a steady gait and the use of a cane nurse is stand by assist only. Pt is assited to bed. Call lighti nreach of pt. Encouraged to call if assitance is needed.
--- NOTE | 2024-03-22 06:23 | NUR ---
INFORMATION TECHNOLOGY CONSULTANT reports pt seems to be confused was unaware of where she is at, pt is asking for a man named Karsten. Pt had urinated in her bed which is unusaual for the pt. Stool sample was collected. Pt urine was cloudy milky looking
--- NOTE | 2024-03-22 07:05 | NUR ---
Report given to Fatemeh DENIS
[2024-03-22 07:33] VITALS: BP 139/69
[2024-03-22 07:57] LABS: BASO # 0.01 K/mm3 (0.02-0.10); EOS # 0.32 K/mm3 (0.04-0.40); EOS % 3.6 % (1.0-5.0); HEMATOCRIT 30.8 % (37.0-47.0); HEMOGLOBIN 9.7 g/dL (12.5-16.0); LYMPH# 0.64 K/mm3 (1.50-4.00); MEAN CELL VOLUME 89 fl (78-100); MEAN CORPUSCULAR HEMOGLOBIN 28 pg (27-31); MEAN CORPUSCULAR HGB CONC 32 g/dL (33-37); MEAN PLATELET VOLUME 8.5 fl (7.4-10.4); MONO # 0.83 K/mm3 (0.20-0.80); NEU # 7.05 K/mm3 (1.40-6.50); PLATELET COUNT 459 K/mm3 (130-400); RED BLOOD COUNT 3.45 M/mm3 (4.10-5.30); RED CELL DISTRIBUTION WIDTH 14.6 % (11.5-14.5); WHITE BLOOD COUNT 8.9 K/mm3 (4.8-10.8)
--- NOTE | 2024-03-22 08:01 | NUR ---
Patient is alert this morning and oriented to self and month but unsure of place. Patient ambulated stanby assist with a cane to the bathroom and voided. Patient flushed urine before able to see urine if cloudy as reported by electrical technician nurse. Glucose this morning at 94. Gilson wrap in place on left forearm and IV intact. Denies pain. Lower bilateral lungs diminished. Unlabored breathing. Patient back to bed and blood draw completed.
--- NOTE | 2024-03-22 18:21 | NUR ---
Patient's daughter and two grandsons visited today for most of the afternoon. She went outside with them in a wheelchair to enjoy some fresh air and sunshine since it was warmer outside. Denies pain today. She was alert and oriented x4 today, no confusion. Ambulated well with a cane. 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 She would like to walk this evening instead.
[2024-03-22 19:00] VITALS: BP 121/72
--- NOTE | 2024-03-22 19:58 | NUR ---
pt alert and oriented and resting in her bed, pt reports no pain at this time just cold. Sharla pct got her another warm blanket. assessment performed without complication. pt resting in bed ready for sleep. call light in reach and bed alarm on
[2024-03-23 08:07] VITALS: BP 120/74
--- NOTE | 2024-03-23 11:30 | NUR ---
Patient a/o x 4. Denies pain. Up in chair. Takes medications well. Assessment completed at 8:30am. Ambulating weel with a cand and standby assist. Regular respirations and breathing unlabored. Heart rate and rhythm regular. Order requested to discontinue IV. VORB to discontinue IV for this patient by Precious Lo APRN at 1130am.
--- NOTE | 2024-03-23 16:53 | NUR ---
Family visiting for the afternoon. Abena ambulated via cane about 150 feet and then was wheeled outside for fresh air with son and DIL. Son brought her an ice cream for an afternoon snack which she ate in its entirety. IV from the left forarm was discontinued. 20G catheter intact when removed per physician's orders. She is no longer using the IV.
--- NOTE | 2024-03-23 18:38 | NUR ---
Report given to CIRA Browning.
[2024-03-23 19:00] VITALS: BP 133/81
--- NOTE | 2024-03-23 20:05 | NUR ---
A&OX4. AMBULATES WITH WALKER, GAIT BELT AND X1 ASSIST. LUNGS CLEAR. ENCOURAGE USE OF INCENTIVE SPIROMETER. COLLECTED UA AND SENT TO LAB DUE TO CLOUDY, ODOROUS URINE WITH INCREASED FREQUENCY. WILL AWAIT RESULTS. ABD SOFT AND NON TENDER. AFEBRILE. DENIES PAIN.
[2024-03-23 22:36] LABS: PH-URINE 5.5 (5.0 - 8.0); URINE APPEARANCE CLOUDY (CLEAR); URINE BILIRUBIN NEGATIVE (NEGATIVE); URINE COLOR LIGHT YELLOW (YELLOW); URINE GLUCOSE 2+ (NEGATIVE); URINE KETONE NEGATIVE (NEGATIVE); URINE NITRATE NEGATIVE (NEGATIVE); URINE PROTEIN(semi-quant) 2+ (NEGATIVE)
[2024-03-23 22:37] LABS: URINE BLOOD 2+ (NEGATIVE); URINE LEUKOCYTE ESTERASE 3+ (NEGATIVE); URINE MUCUS PRESENT (NOT PRESENT); URINE WBC >50 /hpf (0-3)
[2024-03-23] MEDS ORDERED: Nitrofurantoin (Mono/Macro) 100 MG CAPSULE PO SCH (23:45)
--- NOTE | 2024-03-23 23:56 | NUR ---
PROVIDER LATRICE NOTIFIED OF RESULTS OF UA RESULTS. ORDERS RECEIVED. PT NOTIFIED OF UA RESULTS AND ANITBIOTICS ORDERED. ADMINISTERED FIRST DOSE OF ANTIBIOTICS AT THIS TIME.
[2024-03-24 07:20] VITALS: BP 156/82
--- NOTE | 2024-03-24 09:00 | NUR ---
Pt setting in chair. She works on [employer] intermittantly. She denies pain when asked. She does use cane/walker for ambulation. She is pleasant to care for and makes needs known with call light.
--- NOTE | 2024-03-24 16:31 | NUR ---
Pt has states " Oh I' am so tired today." She denies pain when asked. Uses call light to make needs known.
--- NOTE | 2024-03-24 19:00 | NUR ---
Report received from Nicolette DENIS
[2024-03-24 19:34] VITALS: BP 113/65
--- NOTE | 2024-03-24 20:45 | NUR ---
Pt laying in bed with her eyes closed. Pt reports 5/10 headache and Tylenol was given. Pt complains of having to take so many pills, nurse explained to pt what medications are for. Pt talks about the visitiors she had over the weekend. Pt denies any other needs when asked. Call light in reach of pt, she is encouraged to call if needs arise. Bed alarms on for safety.
--- NOTE | 2024-03-25 04:07 | NUR ---
Pt calls to use the bathroom
--- NOTE | 2024-03-25 06:49 | NUR ---
Report given to Rolanda DENIS
[2024-03-25 07:14] VITALS: BP 128/76
--- NOTE | 2024-03-25 19:02 | NUR ---
RECEIVED REPORT FROM CIRA JARA
[2024-03-25 19:34] VITALS: BP 165/79
--- NOTE | 2024-03-25 21:00 | NUR ---
PATIENT RESTING IN BED ON ASSESS. DENIES PAIN OR DISCOMFORT AT THIS TIME. REPORTS FEELING MUCH BETTER THAN YESTERDAY. UP WITH ONE ASSIST TO AND FROM TOILET. USES CANE AND GAIT BELT. BED ALARM ON, CALL LIGHT IN REACH
--- NOTE | 2024-03-26 03:13 | NUR ---
PATIENT HAS CALLED MULTIPLE TIMES TO TOILET. DENIES OTHER NEEDS.
--- NOTE | 2024-03-26 07:00 | NUR ---
RESUMED CARE FROM CIRA YO.
[2024-03-26 07:12] VITALS: BP 130/78
[2024-03-26 07:58] LABS: BASO # 0.01 K/mm3 (0.02-0.10); EOS # 0.44 K/mm3 (0.04-0.40); EOS % 4.8 % (1.0-5.0); HEMATOCRIT 37.7 % (37.0-47.0); HEMOGLOBIN 11.8 g/dL (12.5-16.0); LYMPH# 0.72 K/mm3 (1.50-4.00); MEAN CELL VOLUME 88 fl (78-100); MEAN CORPUSCULAR HEMOGLOBIN 28 pg (27-31); MEAN CORPUSCULAR HGB CONC 31 g/dL (33-37); MEAN PLATELET VOLUME 9.3 fl (7.4-10.4); MONO # 0.92 K/mm3 (0.20-0.80); NEU # 7.07 K/mm3 (1.40-6.50); PLATELET COUNT 311 K/mm3 (130-400); RED BLOOD COUNT 4.29 M/mm3 (4.10-5.30); RED CELL DISTRIBUTION WIDTH 14.6 % (11.5-14.5); WHITE BLOOD COUNT 9.2 K/mm3 (4.8-10.8)
[2024-03-26 08:07] LABS: ALBUMIN 3.3 g/dL (3.4-4.8)
[2024-03-26 08:08] LABS: CALCIUM 10.1 mg/dL (8.3-10.5)
[2024-03-26 08:10] LABS: TOTAL PROTEIN 6.6 g/dL (6.2-8.1)
[2024-03-26 08:11] LABS: TOTAL BILIRUBIN 0.4 mg/dL (0.2-1.2)
--- NOTE | 2024-03-26 18:49 | NUR ---
REPORT TO CIRA NOLAN.
[2024-03-26 19:00] VITALS: BP 119/59
[2024-03-26 19:55] VITALS: BP 112/71
[2024-03-27 07:15] VITALS: BP 127/76
--- NOTE | 2024-03-27 18:58 | NUR ---
REPORT TO CIRA ARREOLA.
[2024-03-27 19:00] VITALS: BP 122/76; BP 128/63
--- NOTE | 2024-03-27 19:18 | NUR ---
report from sy valentin
--- NOTE | 2024-03-27 19:46 | NUR ---
pt alert and oriented, pt resting in chair on entry. pt denies any pain at this time, pt reports some anxiety about moving back to [place], reports people "spoil her here", pt assessed without complication. pt now resting in chair with call light in reach, chair alarm on. pt enjoying some ice cream at this time
--- NOTE | 2024-03-28 03:49 | NUR ---
pt incontinent of urine this night
--- NOTE | 2024-03-28 06:54 | NUR ---
report to sy valentin
--- NOTE | 2024-03-28 06:54 | NUR ---
report to wave rn
[2024-03-28 07:10] VITALS: BP 113/62
[2024-03-28] MEDS ORDERED: ALLERGY RELIE15.8 ML NS (08:02)
[2024-03-28 09:21] VITALS: BP 113/62
--- NOTE | 2024-03-28 10:06 | NUR ---
PT DISCHARGED. PT LEFT WITH STAFF FROM [facility] IN VEHICLE. PT WAS PUSHED BY STAFF IN WHEELCHAIR. PT LEFT IN STABLE CONDITION.
== END 2024-03-28 10:09 | disposition home or self-care (01) | DRG 690 ==
LOC: MED/SURG 11:43
PROVIDERS: Family Medicine; Physician Assistant; ADMIT Family Medicine
DX: N12 Tubulo-interstitial nephritis, not specified as acute or chronic (principal); R53.81 Other malaise; E11.9 Type 2 diabetes mellitus without complications; D64.9 Anemia, unspecified; E55.9 Vitamin D deficiency, unspecified; D51.9 Vitamin B12 deficiency anemia, unspecified; K21.9 Gastro-esophageal reflux disease without esophagitis; R32 Unspecified urinary incontinence; Z66 Do not resuscitate; F32.A Depression, unspecified; F41.9 Anxiety disorder, unspecified; E78.5 Hyperlipidemia, unspecified; Z79.4 Long term (current) use of insulin; Z85.51 Personal history of malignant neoplasm of bladder
CPT/HCPCS: J0692; J1650; J1815; J1885

== ENCOUNTER 2024-04-07 03:57 | Emergency (ER) | payer MEDICARE, OTHER, MEDICAID ==
[~2024-04-07 03:57] MED LIST changes: +ALLERGY RELIE15.8 ML NS
[2024-04-07] MEDS ORDERED: Ondansetron 4 MG/2 ML VIAL IV ONE (04:15)
[2024-04-07] MEDS ORDERED: NS 500 ML IV SCH (04:15)
[2024-04-07 04:26] LABS: HEMOGLOBIN 10.5 g/dL (12.5-16.0); MEAN CELL VOLUME 87 fl (78-100); MEAN CORPUSCULAR HEMOGLOBIN 28 pg (27-31); MEAN CORPUSCULAR HGB CONC 32 g/dL (33-37); MEAN PLATELET VOLUME 8.5 fl (7.4-10.4); PLATELET COUNT 465 K/mm3 (130-400); RED CELL DISTRIBUTION WIDTH 14.1 % (11.5-14.5); WHITE BLOOD COUNT 14.7 K/mm3 (4.8-10.8)
[2024-04-07] MEDS ORDERED: ZOFRAN ODT4 MG PO (04:26)
[2024-04-07 04:33] LABS: ALBUMIN 3.5 g/dL (3.4-4.8)
[2024-04-07 04:34] LABS: CALCIUM 10.2 mg/dL (8.3-10.5)
[2024-04-07 04:35] LABS: TOTAL PROTEIN 6.8 g/dL (6.2-8.1)
[2024-04-07 04:37] LABS: TOTAL BILIRUBIN 0.3 mg/dL (0.2-1.2)
[2024-04-07 04:42] LABS: LYMPHOCYTE 2 % (20-51); MONOCYTE 5 % (3-10); NEUTROPHILS 93 % (42-75)
[2024-04-07 05:10] LABS: URINE APPEARANCE TURBID (CLEAR); URINE COLOR YELLOW (YELLOW)
[2024-04-07 05:16] LABS: PH-URINE 5.5 (5.0 - 8.0); URINE BILIRUBIN 1+ (NEGATIVE); URINE GLUCOSE NEGATIVE (NEGATIVE); URINE KETONE 1+ (NEGATIVE); URINE PROTEIN(semi-quant) 2+ (NEGATIVE)
[2024-04-07 05:17] LABS: URINE BLOOD 3+ (NEGATIVE); URINE LEUKOCYTE ESTERASE 3+ (NEGATIVE); URINE NITRATE NEGATIVE (NEGATIVE); URINE WBC >50 /hpf (0-3)
[2024-04-07] MEDS ORDERED: MACROBID 100 M100 MG PO (05:29)
[2024-04-07] MEDS ORDERED: cefTRIAXone 1 G in Water For Injection,Sterile 10 ML IV ONE (05:30)
[2024-04-07 06:12] VITALS: BP 113/62
== END 2024-04-07 06:13 | disposition home or self-care (01) ==
LOC: ED 03:57
PROVIDERS: Physician Assistant
DX: A08.4 Viral intestinal infection, unspecified (principal); N39.0 Urinary tract infection, site not specified; E86.0 Dehydration; R73.9 Hyperglycemia, unspecified
CPT/HCPCS: J0696; J2405; J7040

== ENCOUNTER 2024-05-06 12:07 | Emergency (ER) | payer MEDICARE, MEDICAID ==
[~2024-05-06] VITALS: Ht 162.6 cm; Wt 75.1 kg
[~2024-05-06 12:07] MED LIST changes: +MACROBID 100 M100 MG PO
[2024-05-06 12:45] LABS: BASO # 0.01 K/mm3 (0.02-0.10); EOS # 0.15 K/mm3 (0.04-0.40); EOS % 2.1 % (1.0-5.0); HEMATOCRIT 34.4 % (37.0-47.0); HEMOGLOBIN 10.6 g/dL (12.5-16.0); LYMPH# 0.74 K/mm3 (1.50-4.00); MEAN CELL VOLUME 88 fl (78-100); MEAN CORPUSCULAR HEMOGLOBIN 27 pg (27-31); MEAN CORPUSCULAR HGB CONC 31 g/dL (33-37); MEAN PLATELET VOLUME 8.6 fl (7.4-10.4); MONO # 0.59 K/mm3 (0.20-0.80); NEU # 5.78 K/mm3 (1.40-6.50); PLATELET COUNT 376 K/mm3 (130-400); RED BLOOD COUNT 3.92 M/mm3 (4.10-5.30); WHITE BLOOD COUNT 7.3 K/mm3 (4.8-10.8)
[2024-05-06 12:55] LABS: ALBUMIN 3.6 g/dL (3.4-4.8)
[2024-05-06 12:56] LABS: CALCIUM 9.9 mg/dL (8.3-10.5)
[2024-05-06 12:57] LABS: TOTAL PROTEIN 6.6 g/dL (6.2-8.1)
[2024-05-06 12:59] LABS: TOTAL BILIRUBIN 0.3 mg/dL (0.2-1.2)
[2024-05-06] MEDS ORDERED: NS 1,000 ML IV SCH (13:00)
[2024-05-06 14:17] LABS: URINE APPEARANCE CLOUDY (CLEAR); URINE COLOR YELLOW (YELLOW)
[2024-05-06 14:20] LABS: PH-URINE 6.5 (5.0 - 8.0); URINE BILIRUBIN NEGATIVE (NEGATIVE); URINE BLOOD 2+ (NEGATIVE); URINE GLUCOSE NEGATIVE (NEGATIVE); URINE KETONE NEGATIVE (NEGATIVE); URINE LEUKOCYTE ESTERASE 3+ (NEGATIVE); URINE NITRATE NEGATIVE (NEGATIVE); URINE PROTEIN(semi-quant) 2+ (NEGATIVE)
[2024-05-06 14:23] LABS: URINE WBC >50 /hpf (0-3)
[2024-05-06 16:20] VITALS: BP 139/99
== END 2024-05-06 16:20 | disposition home or self-care (01) ==
LOC: ED 12:07
PROVIDERS: Physician Assistant
DX: I95.1 Orthostatic hypotension (principal)
CPT/HCPCS: J7030